=== PATIENT | male | born 1985 | race Caucasian/White ===

== ENCOUNTER 2023-11-30 06:49 | Day surgery (SDC) | payer OTHER, SELFPAY ==
[2023-11-30] VITALS (16 sets, daily range): BP systolic 100–154; BP diastolic 46–93; BMI 35.9
[2023-11-30] MEDS: NORMOSOL-R 1000 IV (08:13)
[2023-11-30] MEDS: TYLENOL 1000 MG PO (08:13)
--- NOTE | 2023-11-30 11:42 | W.IMMPOSTOP ---
Surgical Immed Post Op Note
-
Primary Surgeon: Rashad
Assisting: Roger FINK
Pre-op Diagnosis: Ventral incisional hernia
Post-op Diagnosis: Incarcerated ventral incisional hernia
Procedure Performed: Robot assisted laparoscopic repair of incarcerated ventral incisional hernia (rTAPP)
Anesthesia Type: GETA + TAP block
Specimen / Cultures: None
Estimated Blood Loss: 10cc
Complications: None immediate
Operative Findings: 6cm x 12cm defect; 11cm x 20cm prolene mesh
--- NOTE | 2023-11-30 11:44 | OR.RPT ---
Operative Report
Operative Report
Primary Surgeon: Rashad
Assisting: Roger FINK
Pre-op Diagnosis: Ventral incisional hernia
Post-op Diagnosis: Incarcerated ventral incisional hernia
Procedure Performed: Robot assisted laparoscopic repair of incarcerated ventral incisional hernia (rTAPP)
Anesthesia Type: GETA + TAP block
Specimen / Cultures: None
Estimated Blood Loss: 10cc
Complications: None immediate
Operative Findings: 6cm x 12cm defect; 11cm x 20cm prolene mesh
Date of Surgery:� 11/30/23
Indications:� This 38M developed�a symptomatic ventral incisional hernia after left nephrectomy for renal cell carcinoma. Repair was thus indicated and laparoscopic approach was elected.
Description of procedure:� The patient was taken to the operating room and the correct site of surgery was verified. General anesthesia was induced and the patient was placed supine on the operating table with arms tucked.� The patient�s abdomen was
prepped and draped in standard sterile fashion. A time-out was completed verifying correct patient, procedure, site, positioning, and implants and special equipment prior to beginning this procedure. A stab incision was made in the left upper
quadrant, a Veress needle was inserted and proper position was confirmed by aspiration and saline drop test. Following this, pneumoperitoneum was created with insufflation of carbon dioxide to 12 mmHg. Then a 8mm robotic trocar was inserted at the
left anterior axillary line at the level of the umbilicus. A laparoscope was inserted and the area of initial trocar entry and Veress needle placement were both inspected and free of trauma. Two 8mm trocars were then placed a hand's breadth above
and below the initial trocar under direct visualization. The peritoneum was incised at the falciform ligament and a flap was developed in transverse and caudad directions using blunt and sharp dissection. The defect was identified and measured 6cm x
12cm. Fatty contents and a loop of small bowel were reduced from the hernia.� The pressure was dropped to 6mmHg and the defect was closed with 0 PDS stratafix suture. An 11cm x 20cm bard soft mesh was passed through a trocar. The mesh was moved
into position to lay flat against the abdominal wall, centered longitudinally on the defect. The mesh was secured into place using 2-0 vicryl suture under the defect and at all four corners as well as assisted along each side.� A 2-0 monocryl
stratafix was used to close the flap. A large central flap rent was closed with 2-0 monocryl stratafix suture. A 14g angiocath was used to decompress the preperitoneal space revealing good seal and mesh in good position without folding or curling. A
transversus abdominis plane block was performed under laparoscopic vision using decadron/marcaine. After ensuring adequate hemostasis, the trocars were removed and the pneumoperitoneum allowed to escape. The trocar incisions were closed at the skin
level using 4-0 monocryl and topical skin adhesive. Abdominal binder was placed. The patient tolerated the procedure well and was taken to the postanesthesia care unit in stable condition.
[2023-11-30] MEDS: DEMEROL 12.5 MG IV ×2 (12:00→12:13)
[2023-11-30] MEDS: DILAUDID 0.5 MG IV (12:36)
== END 2023-11-30 15:11 | disposition home or self-care (01) ==
LOC: SDS 06:49
PROVIDERS: ATTENDING PHYSICIAN Surgery
DX: K43.0 Incisional hernia with obstruction, without gangrene (principal); Z90.5 Acquired absence of kidney; Z85.528 Personal history of other malignant neoplasm of kidney
CPT/HCPCS: 49594; C1781